=== PATIENT | female | born 1950 | race Caucasian/White ===

== ENCOUNTER 2021-09-20 19:48 | Inpatient (IN) | payer OTHER ==
[~2021-09-20] VITALS: Ht 170.2 cm; Wt 86.7 kg
[~2021-09-20 19:48] MED LIST: FOSAMAX70 MG PO; KLOR-CON M 1010 MEQ PO; LOPID600 MG PO; LOPRESSOR50 MG PO; PERCOCET 10-321 EACH PO; PERCOCET 5-3251 EACH PO; PRILOSEC20 MG PO; PRINIVIL10 MG PO; VENTOLIN HFA IN18 GM INH
[2021-09-20 20:54] LABS: BASOPHIL 0 % (0-2); EOSINOPHIL 0.2 % (0-7); HCT 40.2 % (37.0-47.0); HGB 13.1 g/dl (12.5-16.0); LYMPHOCYTE 15.9 % (15-48); MCHC 32.6 g/dL (32.0-36.0); MCV 95.3 fL (78.0-100.0); MONOCYTE 8.4 % (0-12); MPV 10.2 fL (6.0-9.5); NEUTROPHIL 75.1 % (41-80); NRBC 0; PLT 235 K/uL (150-400); RBC 4.22 M/uL (4.20-5.40); RDW 12.6 % (11.5-14.0); WBC 4.7 K/uL (4.0-10.5)
[2021-09-20 21:12] LABS: BUN/CREAT RATIO (CALC) 29.7 RATIO; CREATININE 1.01 mg/dL (0.51-0.95); POTASSIUM 3.4 mmol/L (3.5-5.1)
[2021-09-20 21:32] LABS: INFLUENZA A NAA NEGATIVE (NEGATIVE)
[2021-09-20 21:36] LABS: CORONAVIRUS 2019 SARS-COV-2 POSITIVE (NEGATIVE)
[2021-09-21 01:50] LABS: ALBUMIN 3.7 g/dL (3.4-5.0); ALKALINE PHOSHATASE 107 U/L (46-116); ALT 20 U/L (14-59); AST 23 U/L (15-37); BILIRUBIN - TOTAL 0.8 mg/dL (0.2-1.0); BUN 27 mg/dL (7-18); BUN/CREAT RATIO (CALC) 32.9 RATIO; CHLORIDE 98 mmol/L (98-107); CO2 (BICARBONATE) 26 mmol/L (21-32); CREATININE 0.82 mg/dL (0.51-0.95); GLOBULIN (CALCULATION) 3.5 g/dL; GLUCOSE 139 mg/dL (74-106); LIPASE >2250 U/L (73-393); TOTAL PROTEIN 7.2 g/dL (6.4-8.2)
[2021-09-21 09:11] LABS: BILIRUBIN NEGATIVE (NEGATIVE); BLOOD NEGATIVE Ery/uL (NEGATIVE); CLARITY CLEAR (CLEAR); COLOR YELLOW (YELLOW); GLUCOSE (U) TRACE mg/dL (NORMAL); LEUKOCYTES NEGATIVE Leu/uL (NEGATIVE); NITRITE NEGATIVE (NEGATIVE); PROTEIN TRACE (LOW) mg/dL (NEGATIVE); SPECIFIC GRAVITY 1.015 (1.001-1.030); pH 6.5 (5.0-9.0)
[2021-09-21 11:00] LABS: CHOLESTEROL 131 mg/dL (<200); HDL 40 mg/dL (40-60); LDL - DIRECT 76 mg/dL (<100); TRIGLYCERIDES 133 mg/dL (<150)
[2021-09-22 04:53] LABS: BASOPHIL 0.1 % (0-2); EOSINOPHIL 0 % (0-7); HCT 34.8 % (37.0-47.0); HGB 11.3 g/dl (12.5-16.0); LYMPHOCYTE 8.9 % (15-48); MCH 31.5 pg (25.0-31.0); MCHC 32.5 g/dL (32.0-36.0); MCV 96.9 fL (78.0-100.0); MONOCYTE 7.7 % (0-12); MPV 10.5 fL (6.0-9.5); NEUTROPHIL 81.9 % (41-80); NRBC 0; PLT 208 K/uL (150-400); RBC 3.59 M/uL (4.20-5.40); RDW 12.6 % (11.5-14.0)
[2021-09-22 04:56] LABS: WBC 9.3 K/uL (4.0-10.5)
[2021-09-22 05:23] LABS: ALBUMIN 3.2 g/dL (3.4-5.0); BILIRUBIN - TOTAL 0.9 mg/dL (0.2-1.0); BUN/CREAT RATIO (CALC) 37.9 RATIO; C-REACTIVE PROTEIN 6.6 mg/dL (<=0.90); CREATININE 0.66 mg/dL (0.51-0.95); GLOBULIN (CALCULATION) 3.1 g/dL; MAGNESIUM 1.7 mg/dL (1.8-2.4); PHOSPHORUS 2.6 mg/dL (2.6-4.7); POTASSIUM 4.2 mmol/L (3.5-5.1); TOTAL PROTEIN 6.3 g/dL (6.4-8.2)
[2021-09-23 06:39] LABS: BASOPHIL 0.1 % (0-2); EOSINOPHIL 0.1 % (0-7); HCT 32.3 % (37.0-47.0); HGB 10.8 g/dl (12.5-16.0); LYMPHOCYTE 9.4 % (15-48); MCH 32.2 pg (25.0-31.0); MCHC 33.4 g/dL (32.0-36.0); MCV 96.4 fL (78.0-100.0); MONOCYTE 10.7 % (0-12); MPV 10.4 fL (6.0-9.5); NRBC 0; PLT 192 K/uL (150-400); RBC 3.35 M/uL (4.20-5.40); RDW 12.7 % (11.5-14.0); WBC 10.5 K/uL (4.0-10.5)
[2021-09-23 07:03] LABS: ALBUMIN 2.7 g/dL (3.4-5.0); BILIRUBIN - TOTAL 1.1 mg/dL (0.2-1.0); BUN/CREAT RATIO (CALC) 43.1 RATIO; CREATININE 0.58 mg/dL (0.51-0.95); GLOBULIN (CALCULATION) 3.2 g/dL; POTASSIUM 3.3 mmol/L (3.5-5.1); TOTAL PROTEIN 5.9 g/dL (6.4-8.2)
[2021-09-24 06:40] LABS: BASOPHIL 0.1 % (0-2); EOSINOPHIL 0.2 % (0-7); HCT 32.2 % (37.0-47.0); HGB 10.5 g/dl (12.5-16.0); LYMPHOCYTE 7.5 % (15-48); MCH 31.3 pg (25.0-31.0); MCHC 32.6 g/dL (32.0-36.0); MCV 96.1 fL (78.0-100.0); MONOCYTE 9.1 % (0-12); MPV 10.9 fL (6.0-9.5); NEUTROPHIL 82.6 % (41-80); NRBC 0; PLT 219 K/uL (150-400); RBC 3.35 M/uL (4.20-5.40); RDW 12.6 % (11.5-14.0); WBC 9.6 K/uL (4.0-10.5)
[2021-09-24 06:52] LABS: IRON % SATURATION 6.7 %SAT (20-50)
[2021-09-24 07:21] LABS: ALBUMIN 2.7 g/dL (3.4-5.0); BILIRUBIN - TOTAL 0.8 mg/dL (0.2-1.0); BUN/CREAT RATIO (CALC) 40.4 RATIO; CREATININE 0.47 mg/dL (0.51-0.95); GLOBULIN (CALCULATION) 3.4 g/dL; POTASSIUM 3.8 mmol/L (3.5-5.1); TOTAL PROTEIN 6.1 g/dL (6.4-8.2)
[2021-09-25 06:23] LABS: BASOPHIL 0.1 % (0-2); EOSINOPHIL 0.9 % (0-7); HGB 10.1 g/dl (12.5-16.0); LYMPHOCYTE 12.6 % (15-48); MCH 31.4 pg (25.0-31.0); MCHC 32.6 g/dL (32.0-36.0); MCV 96.3 fL (78.0-100.0); MONOCYTE 9.4 % (0-12); MPV 10.5 fL (6.0-9.5); NEUTROPHIL 76.6 % (41-80); NRBC 0; PLT 248 K/uL (150-400); RBC 3.22 M/uL (4.20-5.40); RDW 12.5 % (11.5-14.0); WBC 7.5 K/uL (4.0-10.5)
[2021-09-25 06:47] LABS: ALBUMIN 2.1 g/dL (3.4-5.0); BILIRUBIN - DIRECT 0.3 mg/dL (0.00-0.20); BILIRUBIN - TOTAL 0.6 mg/dL (0.2-1.0); CREATININE 0.5 mg/dL (0.51-0.95); GLOBULIN (CALCULATION) 3.7 g/dL; POTASSIUM 3.6 mmol/L (3.5-5.1); TOTAL PROTEIN 5.8 g/dL (6.4-8.2)
[2021-09-25] MEDS ORDERED: FEOSOL325 MG PO (10:46)
--- NOTE | 2021-09-25 13:12 | NUR ---
TC TO PT SHE IS ISOLATION. SHE ADVISED THAT SHE RESIDES IN HER OWN HOME, BUT HER NEPHEW RESIDES WITH HER. SHE STATED THAT SHE IS INDEPENDENT AND DOES NOT REQUIRE ANY DME.
== END 2021-09-25 13:38 | disposition home or self-care (01) | DRG 438 ==
LOC: FER 19:48 → FMS 09-21 08:39 → FOFB 09-21 08:39 → FMS 09-21 08:40 → FOFB 09-21 09:51 → FMS 09-21 13:15
PROVIDERS: Emergency Medicine; Family Medicine; Internal Medicine; Nurse Practitioner Family; ADMIT Allergy & Immunology Allergy
DX: K85.00 Idiopathic acute pancreatitis without necrosis or infection (principal); U07.1 COVID-19; C18.9 Malignant neoplasm of colon, unspecified; J44.9 Chronic obstructive pulmonary disease, unspecified; I10 Essential (primary) hypertension; M19.90 Unspecified osteoarthritis, unspecified site; D02.21 Carcinoma in situ of right bronchus and lung; D50.9 Iron deficiency anemia, unspecified; Z79.899 Other long term (current) drug therapy
CPT/HCPCS: 36415; 71275; 80048; 80053; 80061; 80076; 81003; 82150; 82607; 83540; 83550; 83605; 83690; 83735; 84100; 84484; 85025; 85379; 86140; 93005; 94010; C9113; J1170; J1200; J1650; J1885; J2405; J2550; J2930; J3010; J3475; J3480; J7030; J7120; Q9967; U0002